=== PATIENT | female | born 1960 | race Hispanic/Latino ===

== ENCOUNTER 2018-04-29 08:24 | Day surgery (SDC) | payer OTHER, BC ==
[2018-04-28 14:52] VITALS: BMI 44.6
[2018-04-29 09:34] VITALS: TEMP 97.6
[2018-04-29] MEDS ORDERED: Midazolam 2 MG/2 ML VIAL ONE ×3 (10:57→11:05)
[2018-04-29] MEDS ORDERED: Flumazenil 0.1 mg/ml Inj (5ml) IVP ONE (11:03)
[2018-04-29] MEDS ORDERED: Naloxone 0.4 mg/ml Inj (Adult) ONE (11:03)
[2018-04-29] MEDS ORDERED: Sodium Chloride 0.9% 1,000 ML IV SCH (11:30)
[2018-04-29 14:08] VITALS: BP 105/66; PULSE 56; RESP 18; O2SAT 100
--- NOTE | 2018-04-29 16:22 | CARDCATH ---
PROCEDURE DATE: 04/29/2018 PROCEDURES: 1. Elective cardioversion of atrial fibrillation. HISTORY The patient is a 58-year-old woman with a history of SVT and intermittent atrial fibrillation, who presents with recurrence of her atrial fibrillation/SVT. The patient has been treated with a multitude of medications and has undergone ablation with record retrieval specialist. She has been treated with anticoagulation for several months. I received a call from the record retrieval specialist, who requested that we do elective cardioversion on the patient. Pre-procedure EKG shows atrial fibrillation with nonspecific ST-T changes. I performed moderate sedation which included the presence of an independent trained observer that assisted in monitoring the patient's level of consciousness and physiologic status. After administration of Versed and fentanyl, my intra service time was 30 minutes. After adequate sedation with Versed and fentanyl, the patient was prepped on the clam bed laborer table. With 200 joules, the patient was cardioverted in the synchronized mode, back to normal sinus rhythm with one shock. The patient tolerated the procedure well. After giving Narcan, the patient was awake, alert, and felt better back in normal sinus rhythm. The patient was transferred to the recovery room in stable condition. Pedro Pablo Haynes MD
--- NOTE | 2018-04-29 16:46 | CARD ---
APPROVED REPORT Date of service: 04/29/2018 Protocol: LEXISCAN Test Type: Lexiscan Sestamibi Stress Test Attending Physician: Dr. Pedro Pablo Haynes Referring Physician: Dr. Brooks Garcia Test Indications: A-FIB Height:5 ft 4 in Weight:260lbs Medications: ELIQUIS, METOPROLOL, FLECINIDE PRILOSEC, LEVOTHYROXINE ASPIRIN, VITAMIN D3, MVI Medical History: 58 YEAR OLD FEMALE WITH H/O HIGH CHOLESTEROL, A-FIB, HYPOTHYROID, GERD Target HR: 163 bpm Resting ECG: SINUS DARLING Resting Heart Rate: 55 bpm Resting Blood Pressure: 112/64mmHg Submaximum (85%): 139 bpm PROCEDURE Pharmacologic stress testing was performed using 0.4mg per 5ml of regadenoson given intravenously over 7-10 seconds. Reversal agent aminophyline 50 mg, given intravenously for Dyspnea. POST EXERCISE Reason for Termination: Protocol completed Target HR: No Max HR: 57 bpm 50% of Maximum Predicted HR: 163 bpm Exercise duration: 05:10 min:sec, 0 Stage Exercise capacity: 1.0METs Max Blood Pressure: 112/64mmHg Blood Pressure response to exercise: normal resting BP - appropriate response Heart Rate response to exercise: appropriate Chest Pain: No, none Angina index: 0 Arrhythmia: No, none ST Change: No, none Deviation: 0 mm TEST SUMMARY [id number]. INFUSIONDOSE 101:000.00.01.069/.0. INFUSIONDOSE 201:000.00.01.068/.0. INFUSIONDOSE 301:000.00.01.064/.4. INFUSIONDOSE 401:000.00.01.060/.0. INFUSIONDOSE 501:000.00.01.057/.0. INFUSIONDOSE 600:100.00.01.057/.0. INTERPRETATION Stress EKG Conclusion: Lexiscan performed without complications....nuclear results pending. Signed by Pedro Pablo Haynes Electronically Approved: 04/29/2018 13:27:15 EXAM: Myocardial Perfusion STRESS/REST Stress Test Type: Pharmacologic Imaging Protocol The imaging protocol used to acquire images was Stress Tc-99m/rest Tc-99m 1 day Rest Spect myocardial perfusion imaging was performed in supine position 60 minutes following the injection of 30.2 mCi of Tc-99 Myoview. At peak stress, the patient was injected intravenously with 10.9mCi of Tc-99 tetrofosmin after an infusion time of 0 minutes and 10 seconds. Gated Stress Spect was performed 65 minutes after intravenous Tc-99 Myoview injection. The images were gated to evaluate regional wall motion and calculate ventricular ejection fraction.Images were reconstructed using backfilter projection method in short horizontal and verticle long axis. Spect slices were generated. LV Perfusion The quality of the study is good. The left ventricle is within normal limits in size with thickened myocardium. The right ventricle is unremarkable. The lung uptake is normal. The distribution of tracer reveals heterogeneous uptake with mildly decreased perfusion involving mid to distal anterior wall on the stress study. The remainder of the LV myocardium is unremarkable. The rest myocardial perfusion study shows no significant change. Wall Motion Wall motion study shows good contractility of the left ventricle. LVEF = 53%. Conclusion 1. Essnetially normal SPECT myocardial perfusion study. 2. Heterogeneous activities and fixed, anterior defect are most likely due to breast /soft tissue attenuation. 3. Normal gated wall motion and thicknening of the left ventricle. 4. In comparison with the last study of 11/01/2014, there is no significant change.
--- NOTE | 2018-04-29 18:54 | CARD ---
APPROVED REPORT Date of service: 04/29/2018 EKG Measurement Heart [id number] <Conclusion> Atrial fibrillation Left axis deviation Nonspecific intraventricular conduction delay Nonspecific ST abnormality, probably digitalis effect Abnormal ECG
== END 2018-04-29 16:25 | disposition home or self-care (01) ==
LOC: SDS 08:24
PROVIDERS: ATTEND Internal Medicine Cardiovascular Disease
DX: I48.91 Unspecified atrial fibrillation (principal); I47.1 Supraventricular tachycardia; E03.9 Hypothyroidism, unspecified; E78.00 Pure hypercholesterolemia, unspecified; K21.9 Gastro-esophageal reflux disease without esophagitis; Z79.82 Long term (current) use of aspirin; Z79.02 Long term (current) use of antithrombotics/antiplatelets
CPT/HCPCS: 78452; 92960; 93005; 93017; 99152; A9502; J2250; J2310; J2785; J3010; J7030; J7040

== ENCOUNTER 2018-06-16 10:29 | Day surgery (SDC) | payer OTHER, BC | END 2018-06-16 15:00 | disposition home or self-care (01) | LOC: TEE 15:00 ==